=== PATIENT | female | born 1935 | race Two or more races ===

== ENCOUNTER → 2016-12-13 | Outpatient (CLI) | payer MEDICARE, OTHER ==
--- NOTE | 2016-12-13 16:58 | REP ---
LUMBOSACRAL SPINE: Five views of the lumbosacral spine were performed. There are no prior studies. There is mild loss of height in the T10 vertebral body. Lumbar vertebral bodies are normal in height and well aligned with normal lumbar lordosis. There is moderate diffuse spurring. There is moderate disc space narrowing and subchondral sclerosis at all levels with vacuum phenomenon at L1-2 and L5-S1. There is sclerosis and spurring at the posterior facet joints. Posterior elements are intact. There is mild to moderate curvature towards the left of the thoracolumbar spine, the apex of the curvature at about the L2 level. IMPRESSION: Degenerative changes as above. Mild loss of height of the T10 vertebral body is of indeterminate age. Signed by Richar Lujan MD 12/13/2016 05:11 P
== END ==
LOC: M WUC 12:04
PROVIDERS: ATTEND Physician Assistant
DX: M51.37 Other intervertebral disc degeneration, lumbosacral region (principal); M25.78 Osteophyte, vertebrae

== ENCOUNTER → 2017-01-25 | Outpatient (REF) | payer MEDICARE, OTHER ==
[2017-01-25 20:22] LABS: ALBUMIN 4.4 GM/DL (3.2-5.2); ALBUMIN/GLOBULIN RATIO 1.47 (1.00-1.93); ALKALINE PHOSPHATASE 68 U/L (45-117); ALT/SGPT 21 U/L (12-78); ANION GAP 4 MEQ/L (8-16); AST/SGOT 17 U/L (15-37); BILIRUBIN,TOTAL 0.5 MG/DL (0.2-1.0); BLOOD UREA NITROGEN 20 MG/DL (7-18); CALCIUM LEVEL 9.7 MG/DL (8.8-10.2); CARBON DIOXIDE LEVEL 30 MEQ/L (21-32); CHLORIDE LEVEL 105 MEQ/L (98-107); CHOLESTEROL LEVEL 224 MG/DL (<200); CREATININE FOR GFR 0.66 MG/DL (0.55-1.02); FREE T4 1.28 NG/DL (0.76-1.46); GLOMERULAR FILTRATION RATE > 60.0 (>39); GLUCOSE, FASTING 88 MG/DL (83-110); POTASSIUM SERUM 5.1 MEQ/L (3.5-5.1); SODIUM LEVEL 139 MEQ/L (136-145); TOTAL PROTEIN 7.4 GM/DL (6.4-8.2); TRIGLYCERIDES LEVEL 193 MG/DL (<150)
[2017-01-25 20:38] LABS: MEAN CORPUSCULAR HEMOGLOBIN 29.1 pg (27.0-33.0); MEAN CORPUSCULAR HGB CONC 31.1 g/dl (32.0-36.5); MEAN CORPUSCULAR VOLUME 93.8 fl (80.0-96.0); RED CELL DISTRIBUTION WIDTH 14.6 % (11.5-14.5); WHITE BLOOD COUNT 6.7 10^3/uL (4.0-10.0)
== END ==
LOC: M SFHCADAM 11:30
PROVIDERS: ATTEND Family Medicine
DX: E04.1 Nontoxic single thyroid nodule (principal); Z86.39 Personal history of other endocrine, nutritional and metabolic disease; Z86.19 Personal history of other infectious and parasitic diseases; Z79.1 Long term (current) use of non-steroidal anti-inflammatories (NSAID); Z23 Encounter for immunization
CPT/HCPCS: 80053; 80061; 84439; 84443; 85027; 90670; G0463

== ENCOUNTER → 2017-01-31 | Outpatient (CLI) | payer MEDICARE, OTHER ==
--- NOTE | 2017-01-31 13:16 | REP ---
Thyroid ultrasound: There are no comparisons. The thyroid is upper normal size. The right lobe measures 4.9 x 2.2 x 2.3 cm. Left lobe measures 4.0 1.2 x 1.2 cm. The isthmus measures 1.5 mm thickness. There is a 2.2 cm mass is solid and cystic components in the mid and upper pole of the right lobe. There are In the lower pole right lobe there is a solid 0.6 cm nodule. In the left lobe upper pole there is a 0.5 cm nodule. The left lobe lower pole. There is a 0.5 cm nodule. 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 The largest is in the right lobe measuring up to 2.2 cm. Signed by Richar Pires MD 01/31/2017 01:08 P
== END ==
LOC: M RAD 12:20
PROVIDERS: ATTEND Family Medicine
DX: E04.1 Nontoxic single thyroid nodule (principal)

== ENCOUNTER → 2019-09-04 | Outpatient (REF) | payer MEDICARE, OTHER ==
[2019-09-04 18:34] LABS: HEMATOCRIT 38.1 % (36.0-47.0); HEMOGLOBIN 12.5 g/dl (12.0-15.5); MEAN CORPUSCULAR HGB CONC 32.8 g/dl (32.0-36.5); MEAN CORPUSCULAR VOLUME 91.6 fl (80.0-96.0); PLATELET COUNT, AUTOMATED 275 10^3/uL (150-450); RED BLOOD COUNT 4.16 10^6/uL (4.00-5.40); WHITE BLOOD COUNT 7.2 10^3/uL (4.0-10.0)
[2019-09-04 18:47] LABS: ALBUMIN 4.4 GM/DL (3.2-5.2); ALT/SGPT 21 U/L (12-78); BILIRUBIN,TOTAL 0.4 MG/DL (0.2-1.0); BLOOD UREA NITROGEN 16 MG/DL (7-18); CALCIUM LEVEL 9.9 MG/DL (8.8-10.2); CARBON DIOXIDE LEVEL 26 MEQ/L (21-32); CHLORIDE LEVEL 105 MEQ/L (98-107); FOLATE > 24.0 NG/ML (>5.4); FREE T4 1.42 NG/DL (0.76-1.46); GLOMERULAR FILTRATION RATE > 60.0 (>32); GLUCOSE, FASTING 87 MG/DL (70-100); POTASSIUM SERUM 5.6 MEQ/L (3.5-5.1); SODIUM LEVEL 139 MEQ/L (136-145); TOTAL 25(OH) VITAMIN D 25.8 NG/ML (30.0-100.0); TOTAL PROTEIN 7.7 GM/DL (6.4-8.2)
[2019-09-04 19:04] LABS: VITAMIN B12 LEVEL 380 PG/ML (247-911)
== END ==
LOC: M SFHCADAM 15:55
PROVIDERS: ATTEND Family Medicine
DX: I11.9 Hypertensive heart disease without heart failure (principal); I63.512 Cerebral infarction due to unspecified occlusion or stenosis of left middle cerebral artery; E04.1 Nontoxic single thyroid nodule; E55.9 Vitamin D deficiency, unspecified
CPT/HCPCS: 80053; 82306; 82607; 82746; 84439; 84443; 85027; G0463

== ENCOUNTER → 2020-05-05 | Outpatient (REF) | payer MEDICARE, OTHER ==
[2020-05-05 13:16] LABS: HEMATOCRIT 38.5 % (36.0-47.0); HEMOGLOBIN 12.2 g/dl (12.0-15.5); MEAN CORPUSCULAR HEMOGLOBIN 29.3 pg (27.0-33.0); MEAN CORPUSCULAR HGB CONC 31.7 g/dl (32.0-36.5); MEAN CORPUSCULAR VOLUME 92.3 fl (80.0-96.0); PLATELET COUNT, AUTOMATED 252 10^3/uL (150-450); RED BLOOD COUNT 4.17 10^6/uL (4.00-5.40); WHITE BLOOD COUNT 5.5 10^3/uL (4.0-10.0)
[2020-05-05 13:46] LABS: ALBUMIN 4.3 GM/DL (3.2-5.2); ALT/SGPT 19 U/L (12-78); BILIRUBIN,TOTAL 0.7 MG/DL (0.2-1.0); BLOOD UREA NITROGEN 16 MG/DL (7-18); CALCIUM LEVEL 9.4 MG/DL (8.8-10.2); CARBON DIOXIDE LEVEL 28 MEQ/L (21-32); CHLORIDE LEVEL 107 MEQ/L (98-107); CHOLESTEROL LEVEL 252 MG/DL (<200); CHOLESTEROL RISK RATIO 2.831 (<5); CREATININE FOR GFR 0.75 MG/DL (0.55-1.30); FREE T4 1.16 NG/DL (0.76-1.46); GLOMERULAR FILTRATION RATE > 60.0 (>32); GLUCOSE, FASTING 76 MG/DL (70-100); HDL CHOLESTEROL 89 MG/DL (>40); LDL CHOLESTEROL 133 MG/DL (<100); NON-HDL-C 163 MG/DL; SODIUM LEVEL 141 MEQ/L (136-145); TOTAL PROTEIN 7.5 GM/DL (6.4-8.2); TRIGLYCERIDES LEVEL 151 MG/DL (<150)
== END ==
LOC: M SFHCADAM 11:32
PROVIDERS: ATTEND Family Medicine
DX: I63.512 Cerebral infarction due to unspecified occlusion or stenosis of left middle cerebral artery (principal); F41.1 Generalized anxiety disorder

== ENCOUNTER → 2021-01-13 | Outpatient (REF) | payer MEDICARE, OTHER ==
[2021-01-13 13:59] LABS: HEMATOCRIT 37.8 % (36.0-47.0); MEAN CORPUSCULAR HEMOGLOBIN 29.1 pg (27.0-33.0); MEAN CORPUSCULAR HGB CONC 31.7 g/dl (32.0-36.5); MEAN CORPUSCULAR VOLUME 91.5 fl (80.0-96.0); PLATELET COUNT, AUTOMATED 244 10^3/uL (150-450); RED BLOOD COUNT 4.13 10^6/uL (4.00-5.40); WHITE BLOOD COUNT 5.9 10^3/uL (4.0-10.0)
[2021-01-13 14:34] LABS: ALT/SGPT 21 U/L (12-78); BILIRUBIN,TOTAL 0.5 MG/DL (0.2-1.0); BLOOD UREA NITROGEN 17 MG/DL (7-18); CALCIUM LEVEL 9.6 MG/DL (8.8-10.2); CARBON DIOXIDE LEVEL 30 MEQ/L (21-32); CHLORIDE LEVEL 108 MEQ/L (98-107); CHOLESTEROL LEVEL 248 MG/DL (<200); CHOLESTEROL RISK RATIO 3.444 (<5); FREE T4 1.05 NG/DL (0.76-1.46); GLOMERULAR FILTRATION RATE > 60.0 (>32); GLUCOSE, FASTING 86 MG/DL (70-100); HDL CHOLESTEROL 72 MG/DL (>40); LDL CHOLESTEROL 148 MG/DL (<100); NON-HDL-C 176 MG/DL; POTASSIUM SERUM 5.4 MEQ/L (3.5-5.1); SODIUM LEVEL 140 MEQ/L (136-145); TOTAL PROTEIN 7.2 GM/DL (6.4-8.2); TRIGLYCERIDES LEVEL 139 MG/DL (<150)
== END ==
LOC: M SFHCADAM 10:05
PROVIDERS: ATTEND Family Medicine
DX: E04.1 Nontoxic single thyroid nodule (principal); I11.9 Hypertensive heart disease without heart failure; F41.1 Generalized anxiety disorder; E78.5 Hyperlipidemia, unspecified

== ENCOUNTER → 2021-05-18 | Outpatient (REF) | payer MEDICARE, OTHER ==
[2021-05-18 14:14] LABS: ALBUMIN 3.9 GM/DL (3.2-5.2); ALT/SGPT 23 U/L (12-78); BILIRUBIN,TOTAL 0.3 MG/DL (0.2-1.0); BLOOD UREA NITROGEN 20 MG/DL (7-18); CALCIUM LEVEL 9.5 MG/DL (8.8-10.2); CARBON DIOXIDE LEVEL 30 MEQ/L (21-32); CHLORIDE LEVEL 109 MEQ/L (98-107); CHOLESTEROL LEVEL 151 MG/DL (<200); CHOLESTEROL RISK RATIO 2.157 (<5); CREATININE FOR GFR 0.73 MG/DL (0.55-1.30); GLOMERULAR FILTRATION RATE > 60.0 (>32); GLUCOSE, FASTING 86 MG/DL (70-100); HDL CHOLESTEROL 70 MG/DL (>40); LDL CHOLESTEROL 50 MG/DL (<100); NON-HDL-C 81 MG/DL; POTASSIUM SERUM 4.2 MEQ/L (3.5-5.1); SODIUM LEVEL 143 MEQ/L (136-145); TOTAL PROTEIN 6.9 GM/DL (6.4-8.2); TRIGLYCERIDES LEVEL 154 MG/DL (<150)
== END ==
LOC: M SFHCADAM 09:53
PROVIDERS: ATTEND Family Medicine
DX: E78.5 Hyperlipidemia, unspecified (principal)

== ENCOUNTER → 2021-11-02 | Outpatient (REF) | payer MEDICARE, OTHER ==
[2021-11-02 13:03] LABS: HEMATOCRIT 36.8 % (36.0-47.0); HEMOGLOBIN 11.8 g/dl (12.0-15.5); MEAN CORPUSCULAR HEMOGLOBIN 29.2 pg (27.0-33.0); MEAN CORPUSCULAR HGB CONC 32.1 g/dl (32.0-36.5); MEAN CORPUSCULAR VOLUME 91.1 fl (80.0-96.0); PLATELET COUNT, AUTOMATED 234 10^3/uL (150-450); RED BLOOD COUNT 4.04 10^6/uL (4.00-5.40); WHITE BLOOD COUNT 5.3 10^3/uL (4.0-10.0)
[2021-11-02 13:43] LABS: BLOOD UREA NITROGEN 23 MG/DL (7-18); CALCIUM LEVEL 9.5 MG/DL (8.8-10.2); CARBON DIOXIDE LEVEL 29 MEQ/L (21-32); CHLORIDE LEVEL 109 MEQ/L (98-107); CREATININE FOR GFR 0.74 MG/DL (0.55-1.30); FREE T4 1.09 NG/DL (0.76-1.46); GLOMERULAR FILTRATION RATE > 60.0 (>32); GLUCOSE, FASTING 80 MG/DL (70-100); POTASSIUM SERUM 4.4 MEQ/L (3.5-5.1); SODIUM LEVEL 142 MEQ/L (136-145)
== END ==
LOC: M SFHCADAM 08:11
PROVIDERS: ATTEND Family Medicine
DX: I11.9 Hypertensive heart disease without heart failure (principal); E04.1 Nontoxic single thyroid nodule; Z86.73 Personal history of transient ischemic attack (TIA), and cerebral infarction without residual deficits

== ENCOUNTER → 2022-01-31 | Outpatient (REF) | payer MEDICARE, OTHER ==
[2022-01-31 13:11] LABS: HEMATOCRIT 35.7 % (36.0-47.0); HEMOGLOBIN 11.3 g/dl (12.0-15.5); MEAN CORPUSCULAR HEMOGLOBIN 29.7 pg (27.0-33.0); MEAN CORPUSCULAR HGB CONC 31.7 g/dl (32.0-36.5); MEAN CORPUSCULAR VOLUME 93.9 fl (80.0-96.0); PLATELET COUNT, AUTOMATED 233 10^3/uL (150-450); WHITE BLOOD COUNT 5.7 10^3/uL (4.0-10.0)
[2022-01-31 13:30] LABS: ALT/SGPT 24 U/L (12-78); BILIRUBIN,TOTAL 0.5 MG/DL (0.2-1.0); BLOOD UREA NITROGEN 26 MG/DL (7-18); CALCIUM LEVEL 9.5 MG/DL (8.8-10.2); CARBON DIOXIDE LEVEL 29 MEQ/L (21-32); CHLORIDE LEVEL 109 MEQ/L (98-107); CHOLESTEROL LEVEL 175 MG/DL (<200); CHOLESTEROL RISK RATIO 2.083 (<5); CREATININE FOR GFR 0.75 MG/DL (0.55-1.30); GLOMERULAR FILTRATION RATE > 60.0 (>32); GLUCOSE, FASTING 84 MG/DL (70-100); HDL CHOLESTEROL 84 MG/DL (>40); LDL CHOLESTEROL 71 MG/DL (<100); NON-HDL-C 91 MG/DL; POTASSIUM SERUM 4.3 MEQ/L (3.5-5.1); SODIUM LEVEL 141 MEQ/L (136-145); TOTAL PROTEIN 6.8 GM/DL (6.4-8.2); TRIGLYCERIDES LEVEL 102 MG/DL (<150)
== END ==
LOC: M SFHCADAM 09:29
PROVIDERS: ATTEND Family Medicine
DX: I11.9 Hypertensive heart disease without heart failure (principal); E78.5 Hyperlipidemia, unspecified; Z86.73 Personal history of transient ischemic attack (TIA), and cerebral infarction without residual deficits

== ENCOUNTER → 2022-02-17 | Outpatient (CLI) | payer MEDICARE, OTHER | LOC: M RAD 11:40 | PROVIDERS: ATTEND Physician Assistant | DX: M25.561 Pain in right knee (principal); R09.89 Other specified symptoms and signs involving the circulatory and respiratory systems ==

== ENCOUNTER → 2022-08-04 | Outpatient (REF) | payer MEDICARE, OTHER ==
[2022-08-04 16:25] LABS: HEMATOCRIT 35.8 % (36.0-47.0); HEMOGLOBIN 11.4 g/dl (12.0-15.5); MEAN CORPUSCULAR HEMOGLOBIN 30.2 pg (27.0-33.0); MEAN CORPUSCULAR HGB CONC 31.8 g/dl (32.0-36.5); MEAN CORPUSCULAR VOLUME 94.7 fl (80.0-96.0); PLATELET COUNT, AUTOMATED 252 10^3/uL (150-450); RED BLOOD COUNT 3.78 10^6/uL (4.00-5.40); WHITE BLOOD COUNT 8.6 10^3/uL (4.0-10.0)
[2022-08-04 16:37] LABS: ALBUMIN 3.9 G/DL (3.2-5.2); ALKALINE PHOSPHATASE 71 U/L (46-116); ALT/SGPT 18 U/L (7.0-40); AST/SGOT 25 U/L (<34); BILIRUBIN,TOTAL 0.5 MG/DL (0.3-1.2); BLOOD UREA NITROGEN 17 MG/DL (9-23); CALCIUM LEVEL 8.9 MG/DL (8.3-10.6); CARBON DIOXIDE LEVEL 28 MMOL/L (20-31); CHLORIDE LEVEL 106 MMOL/L (98-107); CHOLESTEROL LEVEL 176 MG/DL (<200); CHOLESTEROL RISK RATIO 2.18 (<5); CREATININE FOR GFR 0.77 MG/DL (0.55-1.30); GLOMERULAR FILTRATION RATE > 60.0 (>32); GLUCOSE, FASTING 85 MG/DL (74-106); HDL CHOLESTEROL 80.6 MG/DL (>40); LDL CHOLESTEROL 57.2 MG/DL (<100); NON-HDL-C 95.4 MG/DL; POTASSIUM SERUM 4.4 MMOL/L (3.5-5.1); SODIUM LEVEL 141 MMOL/L (136-145); TOTAL PROTEIN 6.4 G/DL (5.7-8.2); TRIGLYCERIDES LEVEL 191 MG/DL (<150)
[2022-08-04 16:38] LABS: FREE T4 1.16 NG/DL (0.89-1.76); THYROID STIMULATING HORMONE 1.959 uIU/ML (0.55-4.78)
== END ==
LOC: M SFHCADAM 15:10
PROVIDERS: ATTEND Family Medicine
DX: E04.1 Nontoxic single thyroid nodule (principal); E78.5 Hyperlipidemia, unspecified; F41.1 Generalized anxiety disorder

== ENCOUNTER → 2022-10-18 | Outpatient (CLI) | payer MEDICARE, OTHER | LOC: M RAD 09:19 | DX: T18.8XXA Foreign body in other parts of alimentary tract, initial encounter (principal) ==

== ENCOUNTER → 2023-01-31 | Outpatient (REF) | payer MEDICARE, OTHER ==
[2023-01-31 14:20] LABS: HEMATOCRIT 34.3 % (36.0-47.0); HEMOGLOBIN 11.2 g/dl (12.0-15.5); MEAN CORPUSCULAR HEMOGLOBIN 30.8 pg (27.0-33.0); MEAN CORPUSCULAR HGB CONC 32.7 g/dl (32.0-36.5); MEAN CORPUSCULAR VOLUME 94.2 fl (80.0-96.0); PLATELET COUNT, AUTOMATED 216 10^3/uL (150-450); RED BLOOD COUNT 3.64 10^6/uL (4.00-5.40); WHITE BLOOD COUNT 5.6 10^3/uL (4.0-10.0)
[2023-01-31 14:27] LABS: ALBUMIN 3.9 G/DL (3.2-5.2); ALKALINE PHOSPHATASE 84 U/L (46-116); ALT/SGPT 24 U/L (7.0-40); AST/SGOT 24 U/L (<34); BILIRUBIN,TOTAL 0.6 MG/DL (0.3-1.2); BLOOD UREA NITROGEN 15 MG/DL (9-23); CALCIUM LEVEL 9.3 MG/DL (8.3-10.6); CARBON DIOXIDE LEVEL 31 MMOL/L (20-31); CHLORIDE LEVEL 107 MMOL/L (98-107); CHOLESTEROL LEVEL 179 MG/DL (<200); CHOLESTEROL RISK RATIO 2.44 (<5); CREATININE FOR GFR 0.66 MG/DL (0.55-1.30); GLOMERULAR FILTRATION RATE > 60.0 (>32); GLUCOSE, FASTING 78 MG/DL (74-106); HDL CHOLESTEROL 73.1 MG/DL (>40); LDL CHOLESTEROL 79.1 MG/DL (<100); NON-HDL-C 105.9 MG/DL; POTASSIUM SERUM 4.1 MMOL/L (3.5-5.1); SODIUM LEVEL 142 MMOL/L (136-145); TOTAL PROTEIN 6.4 G/DL (5.7-8.2); TRIGLYCERIDES LEVEL 134 MG/DL (<150)
[2023-01-31 14:28] LABS: FREE T4 1.12 NG/DL (0.89-1.76); THYROID STIMULATING HORMONE 2.447 uIU/ML (0.55-4.78)
== END ==
LOC: M SFHCADAM 11:22
PROVIDERS: ATTEND Family Medicine
DX: E04.1 Nontoxic single thyroid nodule (principal); F41.1 Generalized anxiety disorder; I11.9 Hypertensive heart disease without heart failure; I25.10 Atherosclerotic heart disease of native coronary artery without angina pectoris; E78.5 Hyperlipidemia, unspecified

== ENCOUNTER → 2023-02-07 | Outpatient (REF) | payer MEDICARE, OTHER ==
[2023-02-07 17:04] LABS: IRON (FE) 115 UG/DL (50-170); PERCENT SATURATION 39.5 % (13.2-45.0); TOTAL IRON BINDING CAPACITY 291 UG/DL (250-425)
[2023-02-07 17:06] LABS: FERRITIN 51.3 NG/ML (7.3-270.7)
[2023-02-07 17:07] LABS: FOLATE > 24.00 NG/ML (>5.4)
== END ==
LOC: M SFHCADAM 14:00
PROVIDERS: ATTEND Family Medicine
DX: D64.9 Anemia, unspecified (principal)

== ENCOUNTER 2023-07-01 09:23 | Inpatient (IN) | payer MEDICARE, OTHER ==
[~2023-07-01] VITALS: Ht 157.5 cm; Wt 49.3 kg
[2023-07-01] MEDS ORDERED: LORazepam 2 MG/ML 1ML VIAL IM STA (09:34)
[2023-07-01] MEDS: LORazepam 2 MG/ML 1ML VIAL IV STA ×3 (09:45→18:06)
[2023-07-01] MEDS ORDERED: BUSP5TA PO (09:49)
[2023-07-01] MEDS ORDERED: ASPI81TA26 PO (09:49)
[2023-07-01 10:15] LABS: BASO % 0.3 % (0.0-1.0); EOS # 0.2 10^3/uL (0.0-0.5); EOS % 1.7 % (0.0-3.0); HEMATOCRIT 35.2 % (36.0-47.0); HEMOGLOBIN 11.5 g/dl (12.0-15.5); LYMPH # 1.3 10^3/uL (1.5-5.0); LYMPH % 14.7 % (24.0-44.0); MEAN CORPUSCULAR HEMOGLOBIN 30.3 pg (27.0-33.0); MEAN CORPUSCULAR HGB CONC 32.7 g/dl (32.0-36.5); MEAN CORPUSCULAR VOLUME 92.9 fl (80.0-96.0); MONO # 0.5 10^3/uL (0.0-0.8); MONO % 5.4 % (2.0-8.0); NEUTROPHILS % 77.6 % (36.0-66.0); PLATELET COUNT, AUTOMATED 249 10^3/uL (150-450); RED BLOOD COUNT 3.79 10^6/uL (4.00-5.40); WHITE BLOOD COUNT 9.1 10^3/uL (4.0-10.0)
[2023-07-01 10:36] LABS: AMPHETAMINES LEVEL URINE NEGATIVE (NEGATIVE); BARBITURATES URINE NEGATIVE (NEGATIVE); BENZODIAZEPINES URINE NEGATIVE (NEGATIVE); CANNABINOIDS URINE NEGATIVE (NEGATIVE); COCAINE METABOLITE URINE NEGATIVE (NEGATIVE); METHADONE URINE NEGATIVE (NEGATIVE); OPIATES URINE NEGATIVE (NEGATIVE); PHENCYCLIDINE URINE NEGATIVE (NEGATIVE)
[2023-07-01 10:38] LABS: ETHYL ALCOHOL (ETHANOL) < 0.003 % (0.000-0.010)
[2023-07-01 10:40] LABS: ALBUMIN 4.2 G/DL (3.2-5.2); ALKALINE PHOSPHATASE 90 U/L (46-116); ALT/SGPT 18 U/L (7.0-40); AST/SGOT 27 U/L (<34); BILIRUBIN,DIRECT 0.2 MG/DL (<0.4); BILIRUBIN,TOTAL 0.7 MG/DL (0.3-1.2); BLOOD UREA NITROGEN 17 MG/DL (9-23); CALCIUM LEVEL 9.1 MG/DL (8.3-10.6); CARBON DIOXIDE LEVEL 27 MMOL/L (20-31); CHLORIDE LEVEL 105 MMOL/L (98-107); CK-MB VALUE MASS 2.2 NG/ML (<3.6); CREATININE FOR GFR 0.66 MG/DL (0.55-1.30); GLOMERULAR FILTRATION RATE > 60.0 (>32); GLUCOSE, FASTING 108 MG/DL (74-106); POTASSIUM SERUM 4.6 MMOL/L (3.5-5.1); SALICYLATE LEVEL < 3.0 MG/DL (<30); SODIUM LEVEL 139 MMOL/L (136-145); TOTAL PROTEIN 6.8 G/DL (5.7-8.2)
[2023-07-01 10:44] LABS: CPK CREATINE PHOSPHOKINASE 61 U/L (34-145)
[2023-07-01] MEDS ORDERED: ISOVUE-370 76% 100ML VIAL As Ordered ONE (12:18)
[2023-07-01] MEDS: cefTRIAXone SOD 2 GM in D5W MINI-BAG PLUS 50 ML IV ONE (16:11)
[2023-07-01] MEDS: ACETAMINOPHEN 650MG SUPP PR ONE (16:14)
[2023-07-01] MEDS ORDERED: BUSP5TAB PO (17:02)
[2023-07-01] MEDS ORDERED: PRAV20TA2 PO (17:03)
[2023-07-01] MEDS ORDERED: MED REC COMMENT (17:04)
[2023-07-01] MEDS ORDERED: HOME MED LIST COMPLETE! XX SCH (17:05)
[2023-07-01] MEDS: NS 1,000 ML IV ONE (17:36)
[2023-07-01] MEDS: KETOROLAC 30 MG/ML 1ML VIAL IV ONE (17:38)
[2023-07-01 18:52] LABS: COLOR, CSF COLORLESS (COLORLESS); CSF TUBE# CELL CNT TUBE 1
[2023-07-01 18:53] LABS: APPEARANCE, CSF CLEAR (CLEAR)
[2023-07-01 18:54] LABS: APPEARANCE, CSF CLEAR (CLEAR); COLOR, CSF COLORLESS (COLORLESS); CSF TUBE# CELL CNT TUBE 4
[2023-07-01 18:58] LABS: CSF TUBE# GLU TUBE 2
[2023-07-01] MEDS ORDERED: GLUCOSE 4GM CHEW TABLET PO PRN (19:05)
[2023-07-01] MEDS ORDERED: GLUCAGON INJ 1MG VIAL SC PRN (19:05)
[2023-07-01] MEDS ORDERED: DEXTROSE 50% 50ML SYRINGE IV PRN (19:05)
[2023-07-01] MEDS: NS 500 ML IV ONE (20:34)
[2023-07-01] MEDS: PANTOPRAZOLE 40MG VIAL IV SCH (20:34)
[2023-07-01 21:24] VITALS: BP 107/63; TEMP 101.3; O2SAT 96
[2023-07-01] MEDS: ACETAMINOPHEN *IV* 500 MG in IV 1 EA IV PRN (23:05)
[2023-07-02] VITALS (10 sets, daily range): BP systolic 113–156; BP diastolic 54–66; TEMP 97.8–102.7; O2SAT 94–99
[2023-07-02] MEDS: cefTRIAXone SOD 2 GM in D5W MINI-BAG PLUS 50 ML IV SCH (03:33)
[2023-07-02] MEDS: HALOPERIDOL 5MG/ML 1ML VIAL IV PRN (03:47)
[2023-07-02 04:01] LABS: BASO % 0.2 % (0.0-1.0); EOS % 0.5 % (0.0-3.0); HEMATOCRIT 28.7 % (36.0-47.0); LYMPH # 1.5 10^3/uL (1.5-5.0); MEAN CORPUSCULAR HEMOGLOBIN 30.7 pg (27.0-33.0); MEAN CORPUSCULAR HGB CONC 33.1 g/dl (32.0-36.5); MEAN CORPUSCULAR VOLUME 92.9 fl (80.0-96.0); MONO % 11.4 % (2.0-8.0); NEUTROPHILS # 5.9 10^3/uL (1.5-8.5); NEUTROPHILS % 69.7 % (36.0-66.0); PLATELET COUNT, AUTOMATED 207 10^3/uL (150-450); RED BLOOD COUNT 3.09 10^6/uL (4.00-5.40); WHITE BLOOD COUNT 8.5 10^3/uL (4.0-10.0)
[2023-07-02 04:07] LABS: HEMOGLOBIN 9.5 g/dl (12.0-15.5)
[2023-07-02 04:28] LABS: BLOOD UREA NITROGEN 18 MG/DL (9-23); CALCIUM LEVEL 7.9 MG/DL (8.3-10.6); CARBON DIOXIDE LEVEL 26 MMOL/L (20-31); CHLORIDE LEVEL 108 MMOL/L (98-107); CREATININE FOR GFR 0.74 MG/DL (0.55-1.30); GLOMERULAR FILTRATION RATE > 60.0 (>32); GLUCOSE, FASTING 99 MG/DL (74-106); POTASSIUM SERUM 3.9 MMOL/L (3.5-5.1); SODIUM LEVEL 139 MMOL/L (136-145)
[2023-07-02] MEDS: OLANZapine INTRAMUSCULAR 10MG VIAL IM ONE ×2 (08:07→17:05)
[2023-07-02] MEDS: VANCOMYCIN HCL 1,000 MG, VIAL MATE ADAPTER 1 EACH in D5W 250 ML IV ONE (08:10)
[2023-07-02 08:24] LABS: CSF TUBE# TP TUBE 3; TOTAL PROTEIN,CSF 70.1 MG/DL (15-45)
[2023-07-02] MEDS: AMPICILLIN SOD 2 GM in D5W MINI-BAG PLUS 100 ML IV SCH (09:42)
[2023-07-02] MEDS: D5/0.9%NACL 1000ML IV ONE (11:31)
[2023-07-02] MEDS ORDERED: AMPICILLIN SOD 2 GM in D5W MINI-BAG PLUS 100 ML IV SCH (13:00)
[2023-07-02] MEDS: KETOROLAC 30 MG/ML 1ML VIAL IV ONE (16:48)
[2023-07-02] MEDS: VANCOMYCIN HCL 750 MG, VIAL MATE ADAPTER 1 EACH in D5W 250 ML IV SCH (19:44)
[2023-07-02] MEDS ORDERED: PROHANCE 279.3MG/ML 15ML VIAL As Ordered ONE (20:58)
[2023-07-02] MEDS ORDERED: MIDAZOLAM INJ 2MG/2ML VIAL As Ordered ONE (21:23)
[2023-07-02] MEDS: MIDAZOLAM INJ 2MG/2ML VIAL IV ONE (21:24)
[2023-07-02] MEDS ORDERED: LORazepam 2 MG/ML 1ML VIAL As Ordered ONE (21:32)
[2023-07-02] MEDS: LORazepam 2 MG/ML 1ML VIAL IV STA (21:35)
[2023-07-03] VITALS (13 sets, daily range): BP systolic 138–166; BP diastolic 65–77; TEMP 99.6–101.3; O2SAT 66–100
[2023-07-03 05:18] LABS: BASO % 0.1 % (0.0-1.0); EOS # 0.2 10^3/uL (0.0-0.5); EOS % 1.8 % (0.0-3.0); HEMATOCRIT 29.8 % (36.0-47.0); LYMPH # 1.4 10^3/uL (1.5-5.0); LYMPH % 15.7 % (24.0-44.0); MEAN CORPUSCULAR HEMOGLOBIN 30.6 pg (27.0-33.0); MEAN CORPUSCULAR HGB CONC 33.6 g/dl (32.0-36.5); MEAN CORPUSCULAR VOLUME 91.1 fl (80.0-96.0); MONO # 1.1 10^3/uL (0.0-0.8); MONO % 11.9 % (2.0-8.0); NEUTROPHILS # 6.2 10^3/uL (1.5-8.5); NEUTROPHILS % 70.1 % (36.0-66.0); PLATELET COUNT, AUTOMATED 207 10^3/uL (150-450); RED BLOOD COUNT 3.27 10^6/uL (4.00-5.40); WHITE BLOOD COUNT 8.9 10^3/uL (4.0-10.0)
[2023-07-03 05:39] LABS: VANCOMYCIN RANDOM 12.4 UG/ML
[2023-07-03 05:40] LABS: BLOOD UREA NITROGEN 13 MG/DL (9-23); CALCIUM LEVEL 8.2 MG/DL (8.3-10.6); CARBON DIOXIDE LEVEL 27 MMOL/L (20-31); CHLORIDE LEVEL 105 MMOL/L (98-107); CREATININE FOR GFR 0.62 MG/DL (0.55-1.30); GLOMERULAR FILTRATION RATE > 60.0 (>32); GLUCOSE, FASTING 112 MG/DL (74-106); POTASSIUM SERUM 3.4 MMOL/L (3.5-5.1); SODIUM LEVEL 138 MMOL/L (136-145)
[2023-07-03] MEDS ORDERED: D5/0.9%NACL 1000ML IV ONE (09:05)
[2023-07-03] MEDS: D5W/0.9% SODIUM CHLORIDE 1,000 ML IV SCH (10:08)
[2023-07-03 11:22] LABS: PROCALCITONIN <0.04 ng/ml
[2023-07-03] MEDS: KCL 10MEQ/100ML SWI (KRUN) 10 MEQ in IV 1 EA IV ONE (12:36)
[2023-07-03] MEDS: OLANZapine INTRAMUSCULAR 10MG VIAL IM PRN (14:22)
[2023-07-03] MEDS: LORazepam 2 MG/ML 1ML VIAL IV STA (15:31)
[2023-07-04] VITALS (7 sets, daily range): BP systolic 119–164; BP diastolic 54–72; TEMP 97.8–99.9; O2SAT 93–95
[2023-07-04 07:48] LABS: BASO % 0.3 % (0.0-1.0); EOS # 0.4 10^3/uL (0.0-0.5); EOS % 4.4 % (0.0-3.0); HEMATOCRIT 30.7 % (36.0-47.0); HEMOGLOBIN 9.9 g/dl (12.0-15.5); LYMPH # 1.5 10^3/uL (1.5-5.0); MEAN CORPUSCULAR HEMOGLOBIN 29.8 pg (27.0-33.0); MEAN CORPUSCULAR HGB CONC 32.2 g/dl (32.0-36.5); MEAN CORPUSCULAR VOLUME 92.5 fl (80.0-96.0); MONO # 1.1 10^3/uL (0.0-0.8); MONO % 11.7 % (2.0-8.0); NEUTROPHILS # 6.1 10^3/uL (1.5-8.5); NEUTROPHILS % 67.2 % (36.0-66.0); PLATELET COUNT, AUTOMATED 198 10^3/uL (150-450); RED BLOOD COUNT 3.32 10^6/uL (4.00-5.40); WHITE BLOOD COUNT 9.1 10^3/uL (4.0-10.0)
[2023-07-04 08:13] LABS: BLOOD UREA NITROGEN 9 MG/DL (9-23); CALCIUM LEVEL 7.8 MG/DL (8.3-10.6); CARBON DIOXIDE LEVEL 27 MMOL/L (20-31); CHLORIDE LEVEL 108 MMOL/L (98-107); GLOMERULAR FILTRATION RATE > 60.0 (>32); GLUCOSE, FASTING 98 MG/DL (74-106); POTASSIUM SERUM 3.5 MMOL/L (3.5-5.1); SODIUM LEVEL 140 MMOL/L (136-145)
[2023-07-04 14:41] LABS: CHOLESTEROL LEVEL 144 MG/DL (<200); CHOLESTEROL RISK RATIO 2.69 (<5); HDL CHOLESTEROL 53.4 MG/DL (>40); NON-HDL-C 90.6 MG/DL; TRIGLYCERIDES LEVEL 98 MG/DL (<150)
[2023-07-04] MEDS: ASPIRIN 81MG ENTERIC TABLET PO SCH (15:19)
[2023-07-04] MEDS: CLOPIDOGREL 75 MG TAB PO SCH (15:20)
[2023-07-04] MEDS: LR 1,000 ML IV SCH (15:21)
[2023-07-04] MEDS: HEPARIN SOD (PORCINE) 5000UNITS/ML 1ML VIAL/SYRINGE SQ SCH (21:08)
[2023-07-05] VITALS (7 sets, daily range): BP systolic 130–173; BP diastolic 65–81; TEMP 97.8–98.8; O2SAT 94–99
[2023-07-05] MEDS: cefTRIAXone SOD 1 GM in D5W MINI-BAG PLUS 50 ML IV ONE (05:01)
[2023-07-05 05:51] LABS: BASO % 0.3 % (0.0-1.0); EOS # 0.2 10^3/uL (0.0-0.5); EOS % 2.2 % (0.0-3.0); HEMATOCRIT 31.9 % (36.0-47.0); HEMOGLOBIN 10.5 g/dl (12.0-15.5); LYMPH % 14.1 % (24.0-44.0); MEAN CORPUSCULAR HEMOGLOBIN 30.8 pg (27.0-33.0); MEAN CORPUSCULAR HGB CONC 32.9 g/dl (32.0-36.5); MEAN CORPUSCULAR VOLUME 93.5 fl (80.0-96.0); MONO # 0.7 10^3/uL (0.0-0.8); MONO % 10.1 % (2.0-8.0); NEUTROPHILS # 5.1 10^3/uL (1.5-8.5); PLATELET COUNT, AUTOMATED 196 10^3/uL (150-450); RED BLOOD COUNT 3.41 10^6/uL (4.00-5.40)
[2023-07-05 06:02] LABS: BLOOD UREA NITROGEN 9 MG/DL (9-23); CARBON DIOXIDE LEVEL 23 MMOL/L (20-31); CHLORIDE LEVEL 110 MMOL/L (98-107); CREATININE FOR GFR 0.44 MG/DL (0.55-1.30); GLOMERULAR FILTRATION RATE > 60.0 (>32); GLUCOSE, FASTING 87 MG/DL (74-106); POTASSIUM SERUM 3.6 MMOL/L (3.5-5.1); SODIUM LEVEL 143 MMOL/L (136-145)
[2023-07-05] MEDS: ATORVASTATIN 20 MG TAB PO SCH (10:26)
[2023-07-06 03:56] VITALS: BP 128/67; TEMP 98.5; O2SAT 94
[2023-07-06 06:05] LABS: BASO % 0.3 % (0.0-1.0); EOS # 0.4 10^3/uL (0.0-0.5); EOS % 5.1 % (0.0-3.0); HEMATOCRIT 28.2 % (36.0-47.0); HEMOGLOBIN 9.5 g/dl (12.0-15.5); LYMPH # 1.4 10^3/uL (1.5-5.0); MEAN CORPUSCULAR HEMOGLOBIN 30.4 pg (27.0-33.0); MEAN CORPUSCULAR HGB CONC 33.7 g/dl (32.0-36.5); MEAN CORPUSCULAR VOLUME 90.4 fl (80.0-96.0); MONO # 0.8 10^3/uL (0.0-0.8); MONO % 10.1 % (2.0-8.0); NEUTROPHILS # 5.1 10^3/uL (1.5-8.5); NEUTROPHILS % 66.1 % (36.0-66.0); PLATELET COUNT, AUTOMATED 226 10^3/uL (150-450); RED BLOOD COUNT 3.12 10^6/uL (4.00-5.40); WHITE BLOOD COUNT 7.7 10^3/uL (4.0-10.0)
[2023-07-06 06:32] LABS: BLOOD UREA NITROGEN 9 MG/DL (9-23); CARBON DIOXIDE LEVEL 26 MMOL/L (20-31); CHLORIDE LEVEL 108 MMOL/L (98-107); GLOMERULAR FILTRATION RATE > 60.0 (>32); GLUCOSE, FASTING 65 MG/DL (74-106); POTASSIUM SERUM 3.5 MMOL/L (3.5-5.1); SODIUM LEVEL 142 MMOL/L (136-145)
[2023-07-06 07:57] LABS: INR 1.09; PARTIAL THROMBOPLASTIN TIME 32.4 SECONDS (24.8-34.2); PROTHROMBIN TIME 13.8 SECONDS (12.5-14.5)
[2023-07-06 07:58] VITALS: BP 122/74; TEMP 98.8; O2SAT 99
[2023-07-06] MEDS: busPIRone 5 MG TAB PO SCH (09:16)
[2023-07-06 15:41] VITALS: BP 159/72; TEMP 97; O2SAT 98
[2023-07-06] MEDS: FLUCONAZOLE 100 MG TAB PO SCH (16:02)
[2023-07-06] MEDS: RIVAROXABAN 10MG TAB (XARELTO) PO SCH (18:50)
[2023-07-06 19:22] VITALS: BP 140/71; TEMP 97.4; O2SAT 97
[2023-07-06] MEDS: RAMELTEON 8 MG TAB (ROZEREM) PO SCH (19:48)
[2023-07-06] MEDS: busPIRone 10 MG TAB PO SCH (19:48)
[2023-07-06] MEDS: QUEtiapine FUMARATE 25 MG TAB PO PRN (20:24)
[2023-07-07 07:43] VITALS: BP 158/74; TEMP 99; O2SAT 94
[2023-07-07 08:18] LABS: HEMATOCRIT 31.3 % (36.0-47.0); HEMOGLOBIN 10.4 g/dl (12.0-15.5); MEAN CORPUSCULAR HEMOGLOBIN 30.4 pg (27.0-33.0); MEAN CORPUSCULAR HGB CONC 33.2 g/dl (32.0-36.5); MEAN CORPUSCULAR VOLUME 91.5 fl (80.0-96.0); PLATELET COUNT, AUTOMATED 252 10^3/uL (150-450); RED BLOOD COUNT 3.42 10^6/uL (4.00-5.40); WHITE BLOOD COUNT 8.9 10^3/uL (4.0-10.0)
[2023-07-07 12:25] VITALS: BP 135/60; TEMP 98.2; O2SAT 98
[2023-07-07 14:03] VITALS: BP 135/60
[2023-07-07] MEDS: METOPROLOL TART 25 MG TABLET PO SCH (14:03)
[2023-07-07 16:13] VITALS: BP 131/60; TEMP 98; O2SAT 98
[2023-07-07] MEDS ORDERED: QUET1TAB17 PO (16:19)
[2023-07-07] MEDS ORDERED: METO1TAB87 PO (16:19)
[2023-07-07] MEDS ORDERED: CLOP75TA2 PO (16:19)
[2023-07-07] MEDS ORDERED: ATOR40TA75 PO (16:19)
[2023-07-07 18:00] VITALS: BP 128/62; TEMP 99; O2SAT 97
[2023-07-07] MEDS ORDERED: QUEtiapine FUMARATE 12.5 MG HALF-TAB PO SCH (21:00)
== END 2023-07-07 18:30 | disposition home health service (06) | DRG 94 ==
LOC: M ED 09:23 → EDBD 09:23 → M ED INP 14:50 → ENRESERV 15:08 → M PCU 21:18
PROVIDERS: ADMIT Internal Medicine Nephrology; ATTEND Student in an Organized Health Care Education/Training Program
DX: G00.9 Bacterial meningitis, unspecified (principal); I63.9 Cerebral infarction, unspecified; G93.41 Metabolic encephalopathy; N39.0 Urinary tract infection, site not specified; I47.10 Supraventricular tachycardia, unspecified; B37.0 Candidal stomatitis; I10 Essential (primary) hypertension; E78.5 Hyperlipidemia, unspecified; E87.6 Hypokalemia; K76.0 Fatty (change of) liver, not elsewhere classified; M47.816 Spondylosis without myelopathy or radiculopathy, lumbar region; Z85.828 Personal history of other malignant neoplasm of skin; F41.9 Anxiety disorder, unspecified; E04.1 Nontoxic single thyroid nodule; Z88.2 Allergy status to sulfonamides; Z79.899 Other long term (current) drug therapy; Z79.82 Long term (current) use of aspirin; K57.90 Diverticulosis of intestine, part unspecified, without perforation or abscess without bleeding

== ENCOUNTER → 2023-08-17 | Outpatient (REF) | payer MEDICARE, OTHER ==
[~2023-08-17] MED LIST: ASPI81TA26 PO; ATOR40TA75 PO; BUSP5TA PO; BUSP5TAB PO; CLOP75TA2 PO; MED REC COMMENT; METO1TAB87 PO; PRAV20TA2 PO; QUET1TAB17 PO
[2023-08-17 18:50] LABS: HEMOGLOBIN 11.7 g/dl (12.0-15.5); MEAN CORPUSCULAR HEMOGLOBIN 30.7 pg (27.0-33.0); MEAN CORPUSCULAR HGB CONC 31.6 g/dl (32.0-36.5); MEAN CORPUSCULAR VOLUME 97.1 fl (80.0-96.0); PLATELET COUNT, AUTOMATED 248 10^3/uL (150-450); RED BLOOD COUNT 3.81 10^6/uL (4.00-5.40); WHITE BLOOD COUNT 8.2 10^3/uL (4.0-10.0)
[2023-08-17 18:51] LABS: ALBUMIN 4.1 G/DL (3.2-5.2); ALKALINE PHOSPHATASE 93 U/L (46-116); ALT/SGPT 18 U/L (7.0-40); AST/SGOT 20 U/L (<34); BILIRUBIN,TOTAL 0.5 MG/DL (0.3-1.2); BLOOD UREA NITROGEN 20 MG/DL (9-23); CARBON DIOXIDE LEVEL 30 MMOL/L (20-31); CHLORIDE LEVEL 109 MMOL/L (98-107); CHOLESTEROL LEVEL 198 MG/DL (<200); CHOLESTEROL RISK RATIO 2.65 (<5); CREATININE FOR GFR 0.65 MG/DL (0.55-1.30); GLOMERULAR FILTRATION RATE > 60.0 (>32); GLUCOSE, FASTING 81 MG/DL (74-106); HDL CHOLESTEROL 74.6 MG/DL (>40); LDL CHOLESTEROL 82.6 MG/DL (<100); NON-HDL-C 123.4 MG/DL; POTASSIUM SERUM 5.2 MMOL/L (3.5-5.1); SODIUM LEVEL 140 MMOL/L (136-145); TOTAL PROTEIN 6.9 G/DL (5.7-8.2); TRIGLYCERIDES LEVEL 204 MG/DL (<150)
[2023-08-17 18:52] LABS: FOLATE > 24.00 NG/ML (>5.4); VITAMIN B12 LEVEL 423 PG/ML (211-911)
[2023-08-17 18:53] LABS: THYROID STIMULATING HORMONE 2.254 uIU/ML (0.55-4.78)
== END ==
LOC: M SFHCADAM 13:11
PROVIDERS: ATTEND Family Medicine
DX: E04.1 Nontoxic single thyroid nodule (principal); E78.5 Hyperlipidemia, unspecified; I63.9 Cerebral infarction, unspecified; F32.9 Major depressive disorder, single episode, unspecified

== ENCOUNTER → 2024-02-22 | Outpatient (REF) | payer MEDICARE, OTHER ==
[2024-02-22 17:49] LABS: THYROID STIMULATING HORMONE 1.412 uIU/ML (0.55-4.78)
[2024-02-22 17:51] LABS: ALBUMIN 3.9 G/DL (3.2-5.2); ALKALINE PHOSPHATASE 74 U/L (46-116); ALT/SGPT 18 U/L (7.0-40); AST/SGOT 19 U/L (<34); BILIRUBIN,TOTAL 0.5 MG/DL (0.3-1.2); BLOOD UREA NITROGEN 21 MG/DL (9-23); CALCIUM LEVEL 9.7 MG/DL (8.3-10.6); CARBON DIOXIDE LEVEL 29 MMOL/L (20-31); CHLORIDE LEVEL 111 MMOL/L (98-107); CHOLESTEROL LEVEL 181 MG/DL (<200); CHOLESTEROL RISK RATIO 2.92 (<5); CREATININE FOR GFR 0.68 MG/DL (0.55-1.30); GLOMERULAR FILTRATION RATE > 60.0 (>32); GLUCOSE, FASTING 73 MG/DL (74-106); HDL CHOLESTEROL 61.8 MG/DL (>40); NON-HDL-C 119.2 MG/DL; POTASSIUM SERUM 4.4 MMOL/L (3.5-5.1); SODIUM LEVEL 144 MMOL/L (136-145); TOTAL PROTEIN 6.6 G/DL (5.7-8.2); TRIGLYCERIDES LEVEL 181 MG/DL (<150)
[2024-02-22 17:52] LABS: FREE T4 1.26 NG/DL (0.89-1.76)
[2024-02-22 17:53] LABS: HEMATOCRIT 33.2 % (36.0-47.0); HEMOGLOBIN 10.7 g/dl (12.0-15.5); MEAN CORPUSCULAR HEMOGLOBIN 30.7 pg (27.0-33.0); MEAN CORPUSCULAR HGB CONC 32.2 g/dl (32.0-36.5); MEAN CORPUSCULAR VOLUME 95.1 fl (80.0-96.0); PLATELET COUNT, AUTOMATED 196 10^3/uL (150-450); RED BLOOD COUNT 3.49 10^6/uL (4.00-5.40)
== END ==
LOC: M SFHCADAM 11:32
PROVIDERS: ATTEND Family Medicine
DX: I11.9 Hypertensive heart disease without heart failure (principal); E78.5 Hyperlipidemia, unspecified; F41.1 Generalized anxiety disorder; G47.9 Sleep disorder, unspecified; I63.9 Cerebral infarction, unspecified

== ENCOUNTER → 2024-02-29 | Outpatient (REF) | payer MEDICARE, OTHER ==
[2024-02-29 18:10] LABS: PERCENT SATURATION 38.7 % (13.2-45.0)
[2024-02-29 18:14] LABS: FERRITIN 62.4 NG/ML (7.3-270.7)
[2024-02-29 18:16] LABS: HEMATOCRIT 34.1 % (36.0-47.0); HEMOGLOBIN 11.1 g/dl (12.0-15.5); MEAN CORPUSCULAR HEMOGLOBIN 31.4 pg (27.0-33.0); MEAN CORPUSCULAR HGB CONC 32.6 g/dl (32.0-36.5); MEAN CORPUSCULAR VOLUME 96.3 fl (80.0-96.0); PLATELET COUNT, AUTOMATED 226 10^3/uL (150-450); RED BLOOD COUNT 3.54 10^6/uL (4.00-5.40); WHITE BLOOD COUNT 6.8 10^3/uL (4.0-10.0)
[2024-03-03 00:42] LABS: PROTEIN, TOTAL SO 6.9 g/dL (6.1-8.1)
[2024-03-04 09:03] LABS: HAPTOGLOBIN 100 mg/dL (43-212)
[2024-03-04 14:13] LABS: FREE KAPPA LIGHT CHAINS SERUM 14.4 mg/L (3.3-19.4); KAPPA/LAMBDA RATIO SERUM 0.96 (0.26-1.65)
[2024-03-05 06:32] LABS: ALBUMIN SO 4.6 g/dL (3.8-4.8); ALPHA 1 GLOBULINS SO 0.2 g/dL (0.2-0.3); ALPHA 2 GLOBULINS SO 0.6 g/dL (0.5-0.9); BETA 2 GLOBULIN SO 0.2 g/dL (0.2-0.5); BETA GLOBULIN SO 0.4 g/dL (0.4-0.6); GAMMA GLOBULINS SO 0.9 g/dL (0.8-1.7)
== END ==
LOC: M SFHCADAM 13:44
PROVIDERS: ATTEND Family Medicine
DX: D53.9 Nutritional anemia, unspecified (principal)

== ENCOUNTER → 2025-03-14 | Outpatient (REF) | payer MEDICARE, OTHER ==
[~2025-03-14] MED LIST changes: -PRAV20TA2 PO; +PRAV20TA78 PO
[2025-03-14 17:58] LABS: PLATELET COUNT, AUTOMATED 225 10^3/uL (150-450)
[2025-03-14 18:00] LABS: IRON (FE) 98 UG/DL (50-170); PERCENT SATURATION 34.9 % (13.2-45.0)
[2025-03-14 18:01] LABS: ALT/SGPT 22 U/L (7.0-40); AST/SGOT 32 U/L (<34); CALCIUM LEVEL 9.1 MG/DL (8.3-10.6); CARBON DIOXIDE LEVEL 30 MMOL/L (20-31); CHLORIDE LEVEL 104 MMOL/L (98-107); CREATININE FOR GFR 0.75 MG/DL (0.55-1.30); GLOMERULAR FILTRATION RATE 77.0 (>32); POTASSIUM SERUM 4.1 MMOL/L (3.5-5.1); SODIUM LEVEL 142 MMOL/L (136-145); VITAMIN B12 LEVEL 476 PG/ML (211-911)
[2025-03-14 18:03] LABS: FREE T4 1.24 NG/DL (0.89-1.76)
== END ==
LOC: M SFHCADAM 03-13 15:22
PROVIDERS: ATTEND Family Medicine
DX: D53.9 Nutritional anemia, unspecified (principal); E04.1 Nontoxic single thyroid nodule; I11.9 Hypertensive heart disease without heart failure